=== PATIENT | female | born 1955 | race Caucasian/White ===

== ENCOUNTER 2016-08-16 14:27 | Outpatient (CLI) | payer BC ==
[~2016-08-16] VITALS: Ht 149.9 cm; Wt 82.7 kg
[2016-08-16 14:35] VITALS: BP 140/78; PULSE 86; RESP 18; Ht 149.9 cm; Wt 82.7 kg
[2016-08-16] MEDS ORDERED: CIPR500T4 PO (14:42)
[2016-08-16] MEDS ORDERED: LISI40TA9 PO (14:42)
[2016-08-16] MEDS ORDERED: METR500T14 PO (14:42)
[2016-08-16] MEDS ORDERED: LACTINEX PO (14:42)
[2016-08-16] MEDS ORDERED: ALBU8.5H3 INH (14:42)
--- NOTE | 2016-08-16 15:23 | PN ---
Date/Time of Note Date/Time of Note DATE: 08/16/16 TIME: 15:01 Outpatient Progress Note Chief Complaint Abdominal pain/asthma/hypertension/ HPI Abdominal pain/patient has left-sided abdominal pain, patient was recently hospitalized, patient is diverticulosis, at present patient only complains of pain mild on the right lower quadrant, and patient forgot about the pain on left side, patient feels that patient never had a pain in the belly, especially on left side no nausea vomiting, no fever or chill, Asthma/patient has slight cough, on exertion, patient also has shortness of breath on exertion, and also shortness of breath and cough on climbing stairs, patient not taking any inhaler, Hypertension/no headache or dizziness or lightheadedness, patient did have subarachnoid hemorrhage, and patient had ruptured middle cerebral artery aneurysm, patient had coiling of the ruptured RMCA aneurysm, Review of Systems Const: No Fever, no chills, no Wt. loss, no Fatigue, normal appetite, no diaphoresis. Eyes: No pain, no discharge, no redness, no visual change, no foreign body. ENT: No pain, no bleeding, no congestion, no sore throat, no dysphagia, no discharge or rhinitis. Lymph: No adenopathy, no tender nodes, no lymphedema. Resp: Minimal SOB on exertion, or climbing stairs,, minimal cough, no sputum, no wheezing, no chest pain. CV: No chest pain, no palpitaions, no SHARP, no PND, no edema. GI: Normal appetite, mild right lower quadrant pain no left lower quadrant pain, , no nausea, no vomiting, no diarrhea, no blood, no constipation. : No frequency, no urgency, no dysuria, no hematuria, no flank pain, no discharge, no bleeding. Musc: No bone/joint pain, no back pain, no neck pain, no knee pain, no restricted ROM. Skin: No rash, no skin lesions, no erythema, no laceration, no bruising, no pruritus. Neuro: No ZUÑIGA, no dizziness, no syncope, no seizure, no focal-weakness. Endo: No polyuria, no polydypsia, no dry-skin, no temp-intolerance. Psych: No hallucinations, no depression, no anxiety, no suicidal ideation. Ext: No edema, no pain, no ulcer, no weakness. Physical Exam Vital Signs Date Time Temp Pulse Resp B/P Pulse Ox O2 Delivery O2 Flow Rate FiO2 08/16/16 14:35 98.2 86 18 140/78 93 Room Air General Appearance: A 61 year-old female who appears well-developed, well- nourished, in no acute distress. HEENT: Head normocephalic, atraumatic. Pupils equal, round, reactive to light and accommodate. Sclerae are no jaundice. Nasal turbinates pink without erythema or nasal discharge. Mucous membranes pink and moist without lesions. Oropharynx clear without any exudate or discharge. NECK: Supple. Trachea midline, No thyromegaly, No cervical lymphadenopathy, No mass, No carotid bruits, No JVD, Carotid pulses 2+ bilaterally. PULMONARY: Clear to auscultaion bilaterally, No retractions, Chest expansion symmetric bilaterally, no rales, no ronchi, no dulness on percussion. CARDIAC: Normal SI and S2, Regular rate and rythm, no murmur, gallop, or rub. GASTROINTESTINAL: Abdomen is soft, non-tender, Non Rigid, No distention, Positive bowel sounds x4 quadrants, Liver normal. SKIN: Warm, dry, no rash, no bruise, no echmosis. EXTREMITIES: Bilateral lower extremities normal, no edema, no phlabitus, pulse palpable, no contracture. MUSCULOSKELETAL: Spine Normal, Non-tender, Normal range of motion, No swelling, no deformity, no clubbing, or cyanosis, the patient has no edema to bilateral lower extremities, dorsalis pedis pulses palpable bilaterally. NEUROLOGIC: The patient is awake, alert, oriented, responding to yes/no questions appropriately, moving all extremities, cranial nerve intact, normal strenght, normal power, normal coordination, normal gait. Allergies Coded Allergies: No Known Drug Allergies (Verified Allergy, Unknown, 08/16/16) PMH Diverticulosis/asthma/hypertension/subarachnoid hemorrhage/rupture middle cerebral artery aneurysm/coiling of rupture R MCA aneurysm, Status post cholecystectomy,/biopsy of large intestine, Social Hx No smoking or drinking no drugs, Family Hx Noncontributory Assessment/Plan Impression Abdominal pain secondary diverticulosis/asthma/hypertension/history of subarachnoid hemorrhage/embolization and coiling of rupture R MCA aneurysm, Plan Patient education done about asthma and hypertension, Patient has minimal discomfort in abdomen, we'll repeat CBC and CMP in 1 week, patient advised if patient has a fever or abdominal pain get worse to call us, patient still has antibiotic, will continue, Control the blood pressure, slight patient has no medication for asthma, will start albuterol 2 puffs by mouth 4 times a day, one bottle Patient advised to follow with the primary care physician, Medications Home Meds Reported Medications Albuterol Sulfate* (Proair HFA*) 8.5 Gm Hfa.aer.ad, 2 PUFF INH Q4H Y for WHEEZING AND SOB, #1 INHALER 08/16/16 Metronidazole* (Metronidazole*) 500 Mg Tablet, 500 MG PO TID for 10 Days, #30 TAB 08/16/16 Lisinopril* (Lisinopril*) 40 Mg Tablet, 40 MG PO DAILY, #30 TAB 08/16/16 Lactobacillus Acidophilus* (Lactinex*) 1 Tab Chew, 1 TAB PO BID for 14 Days, TAB 08/16/16 Ciprofloxacin Hcl* (Ciprofloxacin Hcl*) 500 Mg Tablet, 500 MG PO BID for 10 Days , #20 TAB 08/16/16 HERNAN GILL MD Aug 16, 2016 15:11
== END 2016-08-16 17:00 | disposition home or self-care (01) ==
LOC: DCC 14:27
PROVIDERS: ATTEND Internal Medicine
DX: K57.90 Diverticulosis of intestine, part unspecified, without perforation or abscess without bleeding (principal); R10.9 Unspecified abdominal pain; J45.909 Unspecified asthma, uncomplicated; I10 Essential (primary) hypertension
CPT/HCPCS: G0463

== ENCOUNTER 2016-08-26 11:23 | Outpatient (CLI) | payer BC ==
[~2016-08-26] VITALS: Ht 149.9 cm; Wt 82.3 kg
[~2016-08-26 11:23] MED LIST: ALBU8.5H3 INH; CIPR500T4 PO; LACTINEX PO; LISI40TA9 PO; METR500T14 PO
[2016-08-26 11:38] VITALS: BP 144/80; PULSE 70; RESP 18; Ht 149.9 cm; Wt 82.3 kg
--- NOTE | 2016-08-26 11:54 | PN ---
Date/Time of Note Date/Time of Note DATE: 08/26/16 TIME: 11:49 Outpatient Progress Note Chief Complaint Diverticulosis/asthma/hypertension HPI Diverticulosis/patient had abdominal pain, patient was recently admitted with diverticulosis, and abdominal pain, patient was on multiple antibiotic, patient does not have any fever or chill abdominal pain blood or mucus in the stool, patient felt completely normal, Asthma/no cough expectoration, no wheezing, hemoptysis, Hypertension/no headache or dizziness or lightheadedness, no local focal weakness, Review of Systems Const: No Fever, no chills, no Wt. loss, no Fatigue, normal appetite, no diaphoresis. Eyes: No pain, no discharge, no redness, no visual change, no foreign body. ENT: No pain, no bleeding, no congestion, no sore throat, no dysphagia, no discharge or rhinitis. Lymph: No adenopathy, no tender nodes, no lymphedema. Resp: No SOB, no cough, no sputum, no wheezing, no chest pain. CV: No chest pain, no palpitaions, no SHARP, no PND, no edema. GI: Normal appetite, no pain, no nausea, no vomiting, no diarrhea, no blood, no constipation. : No frequency, no urgency, no dysuria, no hematuria, no flank pain, no discharge, no bleeding. Musc: No bone/joint pain, no back pain, no neck pain, no knee pain, no restricted ROM. Skin: No rash, no skin lesions, no erythema, no laceration, no bruising, no pruritus. Neuro: No ZUÑGIA, no dizziness, no syncope, no seizure, no focal-weakness. Endo: No polyuria, no polydypsia, no dry-skin, no temp-intolerance. Psych: No hallucinations, no depression, no anxiety, no suicidal ideation. Ext: No edema, no pain, no ulcer, no weakness. Physical Exam Vital Signs Date Time Temp Pulse Resp B/P Pulse Ox O2 Delivery O2 Flow Rate FiO2 08/26/16 11:38 98.3 70 18 144/80 96 Room Air General Appearance: A [61 year-old female who appears well-developed, well- nourished, in no acute distress. HEENT: Head normocephalic, atraumatic. Pupils equal, round, reactive to light and accommodate. Sclerae are no jaundice. Nasal turbinates pink without erythema or nasal discharge. Mucous membranes pink and moist without lesions. Oropharynx clear without any exudate or discharge. NECK: Supple. Trachea midline, No thyromegaly, No cervical lymphadenopathy, No mass, No carotid bruits, No JVD, Carotid pulses 2+ bilaterally. PULMONARY: Clear to auscultaion bilaterally, No retractions, Chest expansion symmetric bilaterally, no rales, very few rhonchi,,, no dulness on percussion. CARDIAC: Normal SI and S2, Regular rate and rythm, no murmur, gallop, or rub. GASTROINTESTINAL: Abdomen is soft, non-tender, Non Rigid, No distention, Positive bowel sounds x4 quadrants, Liver normal. SKIN: Warm, dry, no rash, no bruise, no echmosis. EXTREMITIES: Bilateral lower extremities normal, no edema, no phlabitus, pulse palpable, no contracture. MUSCULOSKELETAL: Spine Normal, Non-tender, Normal range of motion, No swelling, no deformity, no clubbing, or cyanosis, the patient has no edema to bilateral lower extremities, dorsalis pedis pulses palpable bilaterally. NEUROLOGIC: The patient is awake, alert, oriented, responding to yes/no questions appropriately, moving all extremities, cranial nerve intact, normal strenght, normal power, normal coordination, normal gait. Allergies Coded Allergies: No Known Drug Allergies (Verified Allergy, Unknown, 08/16/16) PMH No change Social Hx No change Family Hx No change Assessment/Plan Impression Abdominal discomfort resolved/diverticulosis resolved/history of diverticulitis Asthma Hypertension Plan Patient does not have any abdominal pain, CBC CMP noted, and discussed with the patient and family, Patient advised to lose weight, increase activity, patient education done about diverticulosis, and hypertension, and asthma, Patient was only taking inhaler twice a day, patient advised to take inhaler 4 times a day on regular basis, patient has enough supply, Patient does not have blood pressure medication after a week, we will refill for 30 days, patient to follow with the primary care physician, patient need to refill blood pressure medication and asthma medication on regular basis, patient high risk for readmission secondary to noncompliance Medications Home Meds Reported Medications Albuterol Sulfate* (Proair HFA*) 8.5 Gm Hfa.aer.ad, 2 PUFF INH Q4H Y for WHEEZING AND SOB, #1 INHALER 08/16/16 Lisinopril* (Lisinopril*) 40 Mg Tablet, 40 MG PO DAILY, #30 TAB 08/16/16 Lactobacillus Acidophilus* (Lactinex*) 1 Tab Chew, 1 TAB PO BID for 14 Days, TAB 08/16/16 Discontinued Reported Medications Metronidazole* (Metronidazole*) 500 Mg Tablet, 500 MG PO TID for 10 Days, #30 TAB 08/16/16 Ciprofloxacin Hcl* (Ciprofloxacin Hcl*) 500 Mg Tablet, 500 MG PO BID for 10 Days , #20 TAB 08/16/16 HERNAN GILL MD Aug 26, 2016 11:54
== END 2016-08-26 17:00 | disposition home or self-care (01) ==
LOC: DCC 11:23
PROVIDERS: ATTEND Internal Medicine
DX: K57.90 Diverticulosis of intestine, part unspecified, without perforation or abscess without bleeding (principal); R10.9 Unspecified abdominal pain; J45.909 Unspecified asthma, uncomplicated; I10 Essential (primary) hypertension
CPT/HCPCS: G0463